=== PATIENT | female | born 1985 | race African-American/Black ===

== ENCOUNTER 2018-12-01 18:40 | Inpatient (IN) | payer BC ==
[~2018-12-01] VITALS: Ht 160 cm; Wt 98.4 kg
[2018-12-01 18:41] VITALS: BP 155/86
[2018-12-01 18:57] LABS: URINE BILIRUBIN NEGATIVE (Negative); URINE BLOOD 1+ (Negative); URINE CLARITY CLEAR; URINE COLOR YELLOW; URINE GLUCOSE-RANDOM* NEGATIVE (Negative); URINE KETONES TRACE (Negative); URINE LEUKOCYTES-REFLEX TRACE (Negative); URINE NITRITE-REFLEX NEGATIVE (Negative); URINE PROTEIN (DIPSTICK) NEGATIVE (Negative); URINE SPECIFIC GRAVITY <= 1.005 (1.005-1.035); URINE UROBILINOGEN 0.2 E.U./dl (0.2-1.0)
[2018-12-01 19:06] LABS: BACTERIA-REFLEX None Seen /HPF (None Seen); CASTS None Seen /LPF (None Seen); CRYSTALS None Seen /LPF (None Seen); SQUAMOUS 0-3 Few /LPF (0-3); URINE RBC None Seen /HPF (0-2); URINE WBC-REFLEX 0-5 Rare /HPF (0-5)
[2018-12-01 21:28] LABS: ABSOLUTE NEUTROPHILS 10.3 thou/uL (1.4-8.2); BASOPHILS 0.3 % (0.0-2.0); EOSINOPHILS 3.8 % (0.0-3.0); HEMATOCRIT 35.6 % (37.0-47.0); HEMOGLOBIN 11.5 gm/dL (12.0-15.0); LYMPHOCYTES 11.9 % (24.0-44.0); MCH 28.2 pg (26.0-34.0); MCHC 32.2 g/dL (28.0-37.0); MCV 87.6 fL (80.0-100.0); PLATELET COUNT 359 thou/uL (150-400); RBC 4.07 mil/uL (4.20-5.00); RDW 14.3 % (10.5-14.5); WBC 13.2 thou/uL (4.0-11.0)
[2018-12-01 21:37] LABS: CALCIUM 8.9 mg/dL (8.5-10.1); CREATININE 0.9 mg/dL (0.6-1.0); POTASSIUM 3.3 mmol/L (3.5-5.1)
[2018-12-01] MEDS ORDERED: NOHOMEMEDICATIONS (22:02)
[2018-12-01 22:19] VITALS: BP 146/83
--- NOTE | 2018-12-01 22:31 | NUR ---
NO ANSWER FOR REPORT
--- NOTE | 2018-12-01 22:45 | NUR ---
Attemted to call the emergency room back for report, but no answer.
[2018-12-01 22:59] VITALS: BP 141/46
--- NOTE | 2018-12-01 23:30 | NUR ---
Pt. arrived to the unit from the emergency room accompanied by staff. She is alert,oriented and pleasant. Pt. offers no c/o shortness of air.
[2018-12-01 23:58] VITALS: BP 145/81
--- NOTE | 2018-12-02 00:42 | NUR ---
Pt. admission assessment and history is completed. She offers no complaints. Up to the bathroom with standy by assistance.
[2018-12-02 04:59] VITALS: BP 131/81
[2018-12-02 05:19] LABS: HEMOGLOBIN 10.7 gm/dL (12.0-15.0); MCH 28.4 pg (26.0-34.0); MCHC 32.4 g/dL (28.0-37.0); MCV 87.8 fL (80.0-100.0); RBC 3.76 mil/uL (4.20-5.00); WBC 12.1 thou/uL (4.0-11.0)
[2018-12-02 05:42] LABS: CALCIUM 8.5 mg/dL (8.5-10.1); CREATININE 0.7 mg/dL (0.6-1.0); POTASSIUM 4.1 mmol/L (3.5-5.1)
[2018-12-02 07:53] VITALS: BP 128/76
--- NOTE | 2018-12-02 11:04 | EKG ---
[address] [place] [address] ELECTROCARDIOGRAM REPORT Name: JOSELYN HERNANDEZ Room #: 464-P ADM IN M.R.#: [id number] ������������������ Admission: 12/01/18 ������������������ Attend Phys: Jan Paul MD Discharge: ������������������ Date of : 85 Report #: [id number] ����������������������������������������������������������������� [id number] THIS REPORT FOR: //name// [facility] ED Test Date: 2018-12-01 Test Time: 21:39:48 Pat Name: JOSELYN HERNANDEZ Department: Room: 464 Gender: F [employer]: daily : 1985 Requested By: Teresa Brooks Order Number: [id number] MD: Eric Munoz Measurements Intervals [place] Rate: 116 P: 52 WI: 147 QRS: 50 QRSD: 80 T: -1 QT: 327 QTc: 455 Interpretive Statements Sinus tachycardia Otherwise normal tracing No previous ECG available for comparison Electronically Signed On 12-02-2018 11:04:30 CDT by Eric Munoz [email or web address] ��������������������������������������������� <ELECTRONICALLY SIGNED> ���������������������������������������� By: Eric Munoz MD, [facility] ��������������������������������������������� 12/02/18 [id number] Eric Munoz MD, FACC /EPI
[2018-12-02 14:50] VITALS: BP 132/79
--- NOTE | 2018-12-02 19:33 | NUR ---
ASSUMED CARE 0700. ALERT X4, ABLE TO MAKE NEEDS KNOWN. PAIN MANAGED WITH MEDICATIONS. UP AB LIP. PROGRESSING TOWARDS GOALS. HOPES TO GO HOME TOMORROW. CALLS APPROPRIATLY.
[2018-12-02 19:42] VITALS: BP 131/85
--- NOTE | 2018-12-03 03:28 | NUR ---
Pt. rested quietly during the night when checked on during frequent rounds. She offers no c/o pain or increased shortness of air. Up ad matt in the room.
[2018-12-03 08:04] VITALS: BP 139/81
[2018-12-03] MEDS ORDERED: ACCUNEB SO1.25 MG/1 INH (15:27)
[2018-12-03] MEDS ORDERED: MUCINEX600 MG PO (15:28)
[2018-12-03] MEDS ORDERED: PREDNISONE 10 M10 MG PO (15:28)
[2018-12-03] MEDS ORDERED: LEVAQUIN 750 M750 MG PO (15:29)
[2018-12-03 15:44] VITALS: BP 139/81
--- NOTE | 2018-12-03 15:47 | NUR ---
PT PROGRESSING TOWARDS GOALS, HR ELEVATES WITH AMBULATIONS, DC HOME WITH PRESCRIPTIONS ; GUAIFENESIN, LEVOFLOCACIN, PREDNISONE, AND ALBUTEROL. IV DC'S AND TELE REMOVED.
== END 2018-12-03 16:41 | disposition home or self-care (01) | DRG 203 ==
LOC: ER 18:40 → EROBS 21:47 → 4W 23:46
PROVIDERS: Emergency Medicine; Nurse Practitioner Family; ADMIT Hospitalist
DX: J45.901 Unspecified asthma with (acute) exacerbation (principal); A59.9 Trichomoniasis, unspecified; J20.9 Acute bronchitis, unspecified; G43.909 Migraine, unspecified, not intractable, without status migrainosus; R09.02 Hypoxemia; F17.210 Nicotine dependence, cigarettes, uncomplicated; Z71.6 Tobacco abuse counseling; Z88.6 Allergy status to analgesic agent; Z88.8 Allergy status to other drugs, medicaments and biological substances
CPT/HCPCS: 10045